=== PATIENT | female | born 1930 | race Caucasian/White ===

== ENCOUNTER 2016-07-29 19:11 | Inpatient (IN) | payer OTHER ==
[~2016-07-29] VITALS: Ht 165.1 cm; Wt 52.0 kg
[~2016-07-29 19:11] MED LIST: 24 HOUR ALLER15.8 ML BOTH NARES; ADVAIR 500/501 DISK IH; ALBUTEROL2.5 MG/3 M IH; AMBIEN5 MG PO; ARICEPT10 MG PO; ATROVENT 00.5 MG/2.5 IH; AUGMENTIN875 MG PO; AZITHROMYCIN250 MG PO; BENAZEPRIL HCL10 MG PO; BENAZEPRIL HCL20 MG PO; BLOOD PRESSURE PILL; CALTRATE 6001 TABLE1 PO; CARDIZEM CD,CA240 MG PO; CLONAZEPAM1 MG PO; DONEPEZIL HCL10 MG PO; DOXYCYCLINE HY100 MG PO; FEOSOL325 MG PO; FERROUS SULFAT325 MG PO; FLONASE16 G1 BOTH NARES; FLUTICASONE PRO16 GM BOTH NARES; IMODIUM MS REL1 EACH PO; JANUVIA100 MG PO; KLONOPIN1 MG PO; LEVAQUIN500 MG PO; LEVAQUIN750 MG PO; LOTENSIN20 MG PO; METFORMIN HCL1000 MG PO; METFORMIN HCL500 MG PO; METRONIDAZOLE500 MG PO; MIRTAZAPINE15 MG PO; NORVASC5 M1 PO; OMEPRAZOLE40 M1 PO; PERCOCET 5/31 TABLET PO; PHENERGAN DM SYR1 ML PO; PHENERGAN-CODE120 ML PO; PREDNISONE20 MG PO; PRILOSEC40 MG PO; PROVENTIL,2.5 MG/3 M IH; REMERON15 M2 PO; REMERON30 M2 PO; SUGAR PILL PO; VITAMIN B-12500 MC5 SL; ZOLPIDEM TARTRAT5 MG PO
[2016-07-29 19:46] LABS: HEMATOCRIT 25.4 % (36.0-46.0); MCH 30.6 PG (29.0-34.0); MCHC 31.9 G/DL (30.0-36.0); MCV 95.8 FL (83-99); PLATELET COUNT 283 K/uL (156-360); RBC DIS.WIDTH-CV 14.4 % (11.8-14.6); RBC DIS.WIDTH-SD 47.5 % (39-53); RED BLOOD COUNT 2.65 M/uL (3.80-5.20); WHITE BLOOD COUNT 10.7 K/uL (4.1-10.2)
[2016-07-29 19:55] LABS: CHLORIDE 117 mEq/L (99-109); POTASSIUM 5.6 mEq/L (3.7-5.4); SODIUM 141 mEq/L (136-147)
[2016-07-29 19:58] LABS: GLUCOSE 108 mg/dL (70-99)
[2016-07-29 19:59] LABS: ANION GAP 8 MEQ/L (2-14)
[2016-07-29 20:00] LABS: TOTAL BILIRUBIN 0.2 mg/dL (0.0-1.0)
[2016-07-29 20:01] LABS: ALKALINE PHOSPHATASE 55 IU/L (3-129)
[2016-07-29 20:02] LABS: GFR ESTIMATE (CALCULATED) 30 mL/min/
[2016-07-29 20:03] LABS: DIRECT BILIRUBIN 0.1 mg/dL (0.0-0.3); UREA NITROGEN (BUN) 65 mg/dL (9-23)
[2016-07-29 20:05] LABS: LIPASE 17 U/L (1.0-51.0)
[2016-07-29 20:07] LABS: TROP-I INTERPRETATION NEGATIVE; TROPONIN-I < 0.01 ng/mL (0.0-0.30)
[2016-07-29] MEDS ORDERED: REMERON30 M2 PO (20:45)
[2016-07-29] MEDS ORDERED: BENAZEPRIL HCL20 MG PO (20:45)
[2016-07-29] MEDS ORDERED: PROMETHAZINE-D120 ML PO (20:46)
[2016-07-29] MEDS ORDERED: CLOTRIMAZOLE10 MG PO (20:47)
[2016-07-29] MEDS ORDERED: CLINDAMYCIN HC150 MG PO (20:47)
[2016-07-29] MEDS ORDERED: SERTRALINE HCL25 MG PO (20:48)
[2016-07-29] MEDS ORDERED: VENTOLIN HFA18 GM IH (20:49)
[2016-07-29] MEDS ORDERED: TRAZODONE HCL50 MG PO (20:49)
[2016-07-29] MEDS ORDERED: NAMENDA10 MG PO (20:49)
[2016-07-29 21:09] LABS: CARBON DIOXIDE (BICARBONATE) 18.2 MEQ/L (20-31)
[2016-07-29 21:46] LABS: ADD MIUA? YES; BILIRUBIN NEGATIVE; BLOOD NEGATIVE; COLOR YELLOW ((YELLOW)); GLUCOSE (STRIP) NEGATIVE; KETONES 5; LEUKOCYTES NEGATIVE; NITRITE NEGATIVE; PROTEIN (STRIP) NEGATIVE; SPECIFIC GRAVITY 1.016 (1.000-1.030); UROBILINOGEN 0.2 MG/DL (0.2-1.0)
[2016-07-29 21:56] LABS: BACTERIA NONE SEEN /HPF; EPITHELIAL CELLS RARE /HPF; HYALINE CASTS 15-20 /LPF; MUCUS TRACE /LPF; RED BLOOD CELLS 0-5 /HPF (0-5); UCUL ADDED? NO; WHITE BLOOD CELLS 0-5 /HPF (0-5)
[2016-07-29 23:35] LABS: C DIFF TOXIN POSITIVE (NEGATIVE)
[2016-07-29 23:38] LABS: PROBE CHECK PASS
[2016-07-30] VITALS (28 sets, daily range): BP systolic 0–121; BP diastolic 0–65
[2016-07-30 04:18] LABS: METH RESISTANT S AUREUS PCR NEGATIVE (NEGATIVE)
[2016-07-30 04:19] LABS: PROBE CHECK PASS; SPECIMEN PROCESSING CONTROL PASS
[2016-07-30 04:46] LABS: INFLUENZA A VIRAL ANTIGEN NEGATIVE; INFLUENZA B VIRAL ANTIGEN NEGATIVE
[2016-07-30 06:18] LABS: ANION GAP 9 MEQ/L (2-14); CHLORIDE 121 MEQ/L (99-109); GFR ESTIMATE (CALCULATED) 41 mL/min/; GLUCOSE 107 mg/dL (70-99); MAGNESIUM 1.2 mg/dl (1.3-2.7); POTASSIUM 5.4 MEQ/L (3.7-5.4); SAMPLE HEMOLYSIS CHECK 0; SAMPLE ICTERIC CHECK 0; SAMPLE LIPEMIA CHECK 0; SODIUM 145 MEQ/L (136-147); UREA NITROGEN (BUN) 51 mg/dL (9-23)
[2016-07-30 15:03] LABS: HEMATOCRIT 22.9 % (36.0-46.0); MCH 31.5 PG (29.0-34.0); MCHC 31.9 G/DL (30.0-36.0); MCV 98.7 FL (83-99); MEAN PLAT.VOLUME 8.8 uM^3 (9.5-12.4); PLATELET COUNT 230 K/uL (156-360); RBC DIS.WIDTH-CV 15.3 % (11.8-14.6); RBC DIS.WIDTH-SD 54.9 % (39-53); RED BLOOD COUNT 2.32 M/uL (3.80-5.20); WHITE BLOOD COUNT 9.2 K/uL (4.1-10.2)
[2016-07-30 16:24] LABS: ANION GAP 9 MEQ/L (2-14); CHLORIDE 120 MEQ/L (99-109); GFR ESTIMATE (CALCULATED) 50 mL/min/; GLUCOSE 116 mg/dL (70-99); POTASSIUM 4.6 MEQ/L (3.7-5.4); SAMPLE HEMOLYSIS CHECK 0; SAMPLE ICTERIC CHECK 0; SAMPLE LIPEMIA CHECK 0; SODIUM 144 MEQ/L (136-147); UREA NITROGEN (BUN) 42 mg/dL (9-23)
[2016-07-30 18:00] LABS: POINT-OF-CARE METER ID UU14162636
[2016-07-30 22:52] LABS: POINT-OF-CARE METER ID UU13113803
[2016-07-31] VITALS (18 sets, daily range): BP systolic 89–131; BP diastolic 35–92
[2016-07-31 01:11] LABS: HEMATOCRIT 27.5 % (36.0-46.0); MCV 94.2 FL (83-99)
[2016-07-31 07:48] LABS: POINT-OF-CARE METER ID UU14174217
[2016-07-31 11:02] LABS: EOSINOPHIL (%) 0.1 % (0-5); HEMATOCRIT 26.1 % (36.0-46.0); IMMATURE GRANULOCYTE (%) 0.7 % (0.0-0.7); IMMATURE GRANULOCYTE COUNT 0.7 K/uL; LYMPHOCYTE COUNT 1.8 K/uL (1.0-2.8); MCH 29.9 PG (29.0-34.0); MCHC 32.2 G/DL (30.0-36.0); MCV 92.9 FL (83-99); MEAN PLAT.VOLUME 8.7 uM^3 (9.5-12.4); MONOCYTE COUNT 0.9 K/uL (0-0.8); NEUTROPHIL (%) 74.8 % (45-76); PLATELET COUNT 222 K/uL (156-360); RBC DIS.WIDTH-CV 18.7 % (11.8-14.6); RBC DIS.WIDTH-SD 60.4 % (39-53); RED BLOOD COUNT 2.81 M/uL (3.80-5.20); WHITE BLOOD COUNT 10.7 K/uL (4.1-10.2)
[2016-07-31 11:15] LABS: CHLORIDE 114 mEq/L (99-109); POTASSIUM 3.9 mEq/L (3.7-5.4); SODIUM 142 mEq/L (136-147)
[2016-07-31 11:18] LABS: ANION GAP 8 MEQ/L (2-14)
[2016-07-31 11:20] LABS: GFR ESTIMATE (CALCULATED) > 59 mL/min/
[2016-07-31 11:21] LABS: UREA NITROGEN (BUN) 32 mg/dL (9-23)
[2016-07-31 11:27] LABS: GLUCOSE 215 mg/dL (70-99)
[2016-07-31 12:19] LABS: POINT-OF-CARE METER ID UU14174217
[2016-07-31 17:06] LABS: POINT-OF-CARE METER ID UU14174217
[2016-07-31 22:05] LABS: POINT-OF-CARE METER ID UU14174217
[2016-08-01] VITALS (15 sets, daily range): BP systolic 92–156; BP diastolic 41–71
[2016-08-01 06:54] LABS: HEMATOCRIT 24.6 % (36.0-46.0); MCH 29.9 PG (29.0-34.0); MCHC 32.5 G/DL (30.0-36.0); MCV 91.8 FL (83-99); MEAN PLAT.VOLUME 9.1 uM^3 (9.5-12.4); PLATELET COUNT 187 K/uL (156-360); RBC DIS.WIDTH-CV 18.3 % (11.8-14.6); RBC DIS.WIDTH-SD 60.8 % (39-53); RED BLOOD COUNT 2.68 M/uL (3.80-5.20); WHITE BLOOD COUNT 11.4 K/uL (4.1-10.2)
[2016-08-01 07:43] LABS: POINT-OF-CARE METER ID UU14174217
[2016-08-01 09:39] LABS: ANION GAP 6 MEQ/L (2-14); GFR ESTIMATE (CALCULATED) > 59 mL/min/; GLUCOSE 196 mg/dL (70-99); POTASSIUM 3.4 MEQ/L (3.7-5.4); SAMPLE HEMOLYSIS CHECK 0; SAMPLE ICTERIC CHECK 0; SAMPLE LIPEMIA CHECK 0; SODIUM 138 MEQ/L (136-147); UREA NITROGEN (BUN) 19 mg/dL (9-23)
[2016-08-01 09:42] LABS: CHLORIDE 104 MEQ/L (99-109)
[2016-08-01 11:51] LABS: POINT-OF-CARE METER ID UU14174217
[2016-08-01 17:20] LABS: POINT-OF-CARE METER ID UU14174217
[2016-08-01 21:39] LABS: POINT-OF-CARE METER ID UU13113748
[2016-08-02 00:50] VITALS: BP 124/61
[2016-08-02 04:22] VITALS: BP 126/60
[2016-08-02 07:44] LABS: ANION GAP 3 MEQ/L (2-14); CHLORIDE 99 MEQ/L (99-109); GFR ESTIMATE (CALCULATED) > 59 mL/min/; GLUCOSE 227 mg/dL (70-99); POTASSIUM 3.5 MEQ/L (3.7-5.4); SAMPLE HEMOLYSIS CHECK 0; SAMPLE ICTERIC CHECK 0; SAMPLE LIPEMIA CHECK 0; SODIUM 141 MEQ/L (136-147); UREA NITROGEN (BUN) 17 mg/dL (9-23)
[2016-08-02 08:40] VITALS: BP 112/55
[2016-08-02 11:32] VITALS: BP 134/69
[2016-08-02 11:50] LABS: POINT-OF-CARE METER ID UU13113781; POINT-OF-CARE USER ID ENVKC36
[2016-08-02 16:07] VITALS: BP 110/60
[2016-08-02 16:33] LABS: POINT-OF-CARE METER ID UU13113781
[2016-08-02 21:00] VITALS: BP 103/62
[2016-08-02 21:49] LABS: POINT-OF-CARE METER ID UU13113698
[2016-08-03 00:03] VITALS: BP 93/31
[2016-08-03 04:26] VITALS: BP 121/60
[2016-08-03 06:33] LABS: HEMATOCRIT 26.3 % (36.0-46.0); MCH 29.7 PG (29.0-34.0); MCHC 31.9 G/DL (30.0-36.0); MCV 92.9 FL (83-99); MEAN PLAT.VOLUME 9.4 uM^3 (9.5-12.4); PLATELET COUNT 146 K/uL (156-360); RBC DIS.WIDTH-CV 17.3 % (11.8-14.6); RED BLOOD COUNT 2.83 M/uL (3.80-5.20); WHITE BLOOD COUNT 10.7 K/uL (4.1-10.2)
[2016-08-03 06:39] LABS: EOSINOPHIL (%) 0.5 % (0-5); EOSINOPHIL COUNT 0.1 K/uL (0-0.3); IMMATURE GRANULOCYTE (%) 0.6 % (0.0-0.7); IMMATURE GRANULOCYTE COUNT 0.1 K/uL; LYMPHOCYTE COUNT 1.5 K/uL (1.0-2.8); MONOCYTE (%) 11.2 % (3-12); MONOCYTE COUNT 1.2 K/uL (0-0.8); NEUTROPHIL COUNT 7.9 K/uL (1.8-6.4)
[2016-08-03 06:58] LABS: ANION GAP 4 MEQ/L (2-14); CHLORIDE 100 MEQ/L (99-109); GFR ESTIMATE (CALCULATED) > 59 mL/min/; GLUCOSE 143 mg/dL (70-99); POTASSIUM 3.9 MEQ/L (3.7-5.4); SAMPLE HEMOLYSIS CHECK 0; SAMPLE ICTERIC CHECK 0; SAMPLE LIPEMIA CHECK 0; SODIUM 140 MEQ/L (136-147); UREA NITROGEN (BUN) 17 mg/dL (9-23)
[2016-08-03 08:00] VITALS: BP 138/74
[2016-08-03 08:22] LABS: POINT-OF-CARE METER ID UU13113698; POINT-OF-CARE USER ID ENVKC36
[2016-08-03 11:35] VITALS: BP 115/57
[2016-08-03 12:31] LABS: POINT-OF-CARE METER ID UU13113781
[2016-08-03 15:53] VITALS: BP 135/64
[2016-08-03 18:31] VITALS: BP 138/60
[2016-08-03 22:35] LABS: POINT-OF-CARE METER ID UU14149396
[2016-08-04] VITALS: BP 130/72
[2016-08-04 04:10] VITALS: BP 115/58
[2016-08-04 07:23] LABS: HEMATOCRIT 23.4 % (36.0-46.0); MCH 30.6 PG (29.0-34.0); MCHC 32.9 G/DL (30.0-36.0); MCV 92.9 FL (83-99); RBC DIS.WIDTH-CV 17.1 % (11.8-14.6); RBC DIS.WIDTH-SD 58.2 % (39-53); RED BLOOD COUNT 2.52 M/uL (3.80-5.20); WHITE BLOOD COUNT 8.4 K/uL (4.1-10.2)
[2016-08-04 07:31] LABS: ANION GAP 5 MEQ/L (2-14); CHLORIDE 103 MEQ/L (99-109); GFR ESTIMATE (CALCULATED) > 59 mL/min/; GLUCOSE 121 mg/dL (70-99); POTASSIUM 4.2 MEQ/L (3.7-5.4); SAMPLE HEMOLYSIS CHECK 0; SAMPLE ICTERIC CHECK 0; SAMPLE LIPEMIA CHECK 0; SODIUM 142 MEQ/L (136-147); UREA NITROGEN (BUN) 12 mg/dL (9-23)
[2016-08-04 08:00] VITALS: BP 122/54
[2016-08-04 08:20] LABS: EOSINOPHIL (%) 1.1 % (0-5); EOSINOPHIL COUNT 0.1 K/uL (0-0.3); IMMATURE GRANULOCYTE (%) 0.4 % (0.0-0.7); IMMATURE GRANULOCYTE COUNT 0.4 K/uL; LYMPHOCYTE COUNT 1.5 K/uL (1.0-2.8); MEAN PLAT.VOLUME 9.7 uM^3 (9.5-12.4); MONOCYTE (%) 11.6 % (3-12); NEUTROPHIL (%) 69.8 % (45-76); NEUTROPHIL COUNT 6.2 K/uL (1.8-6.4); PLATELET COUNT 172 K/uL (156-360)
[2016-08-04 09:14] LABS: POINT-OF-CARE METER ID UU14149396
[2016-08-04 12:00] VITALS: BP 112/70
[2016-08-04 12:30] LABS: POINT-OF-CARE METER ID UU14149396
[2016-08-04 16:54] LABS: POINT-OF-CARE METER ID UU14149396
[2016-08-04 19:45] VITALS: BP 116/62
[2016-08-04 22:02] LABS: POINT-OF-CARE METER ID UU14149396
[2016-08-04 23:30] VITALS: BP 102/64
[2016-08-05 03:30] VITALS: BP 108/66
[2016-08-05 07:56] VITALS: BP 137/73
[2016-08-05 08:37] LABS: POINT-OF-CARE METER ID UU13113807
[2016-08-05 09:27] LABS: HEMATOCRIT 26.9 % (36.0-46.0); MCH 29.8 PG (29.0-34.0); MCHC 32.3 G/DL (30.0-36.0); MCV 92.1 FL (83-99); MEAN PLAT.VOLUME 9.6 uM^3 (9.5-12.4); PLATELET COUNT 219 K/uL (156-360); RBC DIS.WIDTH-CV 17.1 % (11.8-14.6); RBC DIS.WIDTH-SD 57.6 % (39-53); RED BLOOD COUNT 2.92 M/uL (3.80-5.20); WHITE BLOOD COUNT 8.3 K/uL (4.1-10.2)
[2016-08-05 09:56] LABS: ANION GAP 6 MEQ/L (2-14); CHLORIDE 101 MEQ/L (99-109); GFR ESTIMATE (CALCULATED) > 59 mL/min/; GLUCOSE 153 mg/dL (70-99); POTASSIUM 4.7 MEQ/L (3.7-5.4); SAMPLE HEMOLYSIS CHECK 0; SAMPLE ICTERIC CHECK 0; SAMPLE LIPEMIA CHECK 0; SODIUM 141 MEQ/L (136-147); UREA NITROGEN (BUN) 15 mg/dL (9-23)
[2016-08-05 12:08] VITALS: BP 132/70
[2016-08-05 13:08] LABS: POINT-OF-CARE METER ID UU13113807
[2016-08-05 16:37] VITALS: BP 135/74
[2016-08-05 17:36] LABS: POINT-OF-CARE METER ID UU13113807
[2016-08-05 21:30] LABS: POINT-OF-CARE METER ID UU13113807
[2016-08-05 23:50] VITALS: BP 130/70
[2016-08-06 05:28] VITALS: BP 144/60
[2016-08-06 07:00] VITALS: BP 140/68
[2016-08-06 07:58] LABS: POINT-OF-CARE METER ID UU14149398
[2016-08-06 09:34] LABS: HEMATOCRIT 27.9 % (36.0-46.0); MCH 29.1 PG (29.0-34.0); MCHC 31.5 G/DL (30.0-36.0); MCV 92.4 FL (83-99); MEAN PLAT.VOLUME 9.2 uM^3 (9.5-12.4); PLATELET COUNT 260 K/uL (156-360); RBC DIS.WIDTH-CV 17.3 % (11.8-14.6); RBC DIS.WIDTH-SD 58.2 % (39-53); RED BLOOD COUNT 3.02 M/uL (3.80-5.20); WHITE BLOOD COUNT 7.8 K/uL (4.1-10.2)
[2016-08-06 10:00] LABS: ANION GAP 8 MEQ/L (2-14); CHLORIDE 102 MEQ/L (99-109); POTASSIUM 4.7 MEQ/L (3.7-5.4); SAMPLE HEMOLYSIS CHECK 0; SAMPLE ICTERIC CHECK 0; SAMPLE LIPEMIA CHECK 0; SODIUM 141 MEQ/L (136-147)
[2016-08-06 10:06] LABS: GFR ESTIMATE (CALCULATED) > 59 mL/min/; GLUCOSE 161 mg/dL (70-99); UREA NITROGEN (BUN) 18 mg/dL (9-23)
[2016-08-06 11:03] VITALS: BP 125/60
[2016-08-06 11:11] LABS: POINT-OF-CARE METER ID UU14149398
[2016-08-06 15:56] VITALS: BP 121/78
[2016-08-06 16:07] LABS: POINT-OF-CARE METER ID UU14149398
[2016-08-06 17:12] LABS: POINT-OF-CARE METER ID UU14149398
[2016-08-06 20:00] VITALS: BP 161/76
[2016-08-06 21:25] LABS: POINT-OF-CARE METER ID UU14149398
[2016-08-06 23:41] VITALS: BP 119/57
[2016-08-07 03:34] VITALS: BP 111/58
[2016-08-07 07:45] VITALS: BP 118/62
[2016-08-07 07:55] LABS: POINT-OF-CARE METER ID UU14149398
[2016-08-07 09:32] LABS: HEMATOCRIT 28.8 % (36.0-46.0); MCHC 31.3 G/DL (30.0-36.0); MCV 92.9 FL (83-99); RBC DIS.WIDTH-CV 17.5 % (11.8-14.6); RBC DIS.WIDTH-SD 58.4 % (39-53); WHITE BLOOD COUNT 8.9 K/uL (4.1-10.2)
[2016-08-07 09:39] LABS: MEAN PLAT.VOLUME 9.2 uM^3 (9.5-12.4); PLATELET COUNT 339 K/uL (156-360)
[2016-08-07 10:03] LABS: ANION GAP 6 MEQ/L (2-14); CHLORIDE 100 MEQ/L (99-109); GFR ESTIMATE (CALCULATED) > 59 mL/min/; GLUCOSE 141 mg/dL (70-99); POTASSIUM 4.8 MEQ/L (3.7-5.4); SAMPLE HEMOLYSIS CHECK 0; SAMPLE ICTERIC CHECK 0; SAMPLE LIPEMIA CHECK 0; SODIUM 140 MEQ/L (136-147); UREA NITROGEN (BUN) 17 mg/dL (9-23)
[2016-08-07 10:58] VITALS: BP 119/59
[2016-08-07 11:08] LABS: POINT-OF-CARE METER ID UU14149398
[2016-08-07 15:08] VITALS: BP 110/64
[2016-08-07 16:15] LABS: POINT-OF-CARE METER ID UU14149398
[2016-08-07 19:15] VITALS: BP 100/60
[2016-08-07 21:39] LABS: POINT-OF-CARE METER ID UU14149398
[2016-08-07 23:00] VITALS: BP 100/49
[2016-08-08 03:10] VITALS: BP 98/55
[2016-08-08 07:27] VITALS: BP 105/58
[2016-08-08 07:44] LABS: POINT-OF-CARE METER ID UU14149396
[2016-08-08 11:15] VITALS: BP 118/59
[2016-08-08 11:25] LABS: POINT-OF-CARE METER ID UU14149396
[2016-08-08 15:37] VITALS: BP 105/55
[2016-08-08 15:46] LABS: POINT-OF-CARE METER ID UU14149396
[2016-08-08 19:15] VITALS: BP 110/50
[2016-08-08 20:27] LABS: POINT-OF-CARE METER ID UU14149396
[2016-08-08 23:15] VITALS: BP 110/44
[2016-08-09] VITALS (8 sets, daily range): BP systolic 88–120; BP diastolic 40–76
[2016-08-09 06:41] LABS: HEMATOCRIT 24.4 % (36.0-46.0); MCH 30.6 PG (29.0-34.0); MCHC 32.4 G/DL (30.0-36.0); MCV 94.6 FL (83-99); PLATELET COUNT 292 K/uL (156-360); RBC DIS.WIDTH-CV 17.9 % (11.8-14.6); RBC DIS.WIDTH-SD 60.8 % (39-53); RED BLOOD COUNT 2.58 M/uL (3.80-5.20); WHITE BLOOD COUNT 6.4 K/uL (4.1-10.2)
[2016-08-09 06:58] LABS: EOSINOPHIL (%) 3.1 % (0-5); EOSINOPHIL COUNT 0.2 K/uL (0-0.3); IMMATURE GRANULOCYTE (%) 1.1 % (0.0-0.7); IMMATURE GRANULOCYTE COUNT 0.1 K/uL; LYMPHOCYTE COUNT 1.5 K/uL (1.0-2.8); MONOCYTE (%) 9.9 % (3-12); MONOCYTE COUNT 0.6 K/uL (0-0.8); NEUTROPHIL (%) 61.7 % (45-76); NEUTROPHIL COUNT 3.9 K/uL (1.8-6.4)
[2016-08-09 07:11] LABS: ANION GAP 6 MEQ/L (2-14); CHLORIDE 104 MEQ/L (99-109); GFR ESTIMATE (CALCULATED) > 59 mL/min/; GLUCOSE 133 mg/dL (70-99); POTASSIUM 5.2 MEQ/L (3.7-5.4); SAMPLE HEMOLYSIS CHECK 0; SAMPLE ICTERIC CHECK 0; SAMPLE LIPEMIA CHECK 0; SODIUM 140 MEQ/L (136-147)
[2016-08-09 07:19] LABS: UREA NITROGEN (BUN) 27 mg/dL (9-23)
[2016-08-09 07:34] LABS: POINT-OF-CARE METER ID UU14149396
[2016-08-09 11:23] LABS: POINT-OF-CARE METER ID UU13113807
[2016-08-09 15:51] LABS: POINT-OF-CARE METER ID UU14149396
[2016-08-09 21:37] LABS: POINT-OF-CARE METER ID UU13113807
[2016-08-10 04:23] VITALS: BP 126/81
[2016-08-10 06:55] LABS: HEMATOCRIT 26.9 % (36.0-46.0); MCH 29.1 PG (29.0-34.0); MCHC 31.2 G/DL (30.0-36.0); MCV 93.1 FL (83-99); MEAN PLAT.VOLUME 8.9 uM^3 (9.5-12.4); PLATELET COUNT 350 K/uL (156-360); RBC DIS.WIDTH-SD 60.6 % (39-53); RED BLOOD COUNT 2.89 M/uL (3.80-5.20); WHITE BLOOD COUNT 7.2 K/uL (4.1-10.2)
[2016-08-10 07:02] LABS: EOSINOPHIL (%) 2.1 % (0-5); EOSINOPHIL COUNT 0.2 K/uL (0-0.3); IMMATURE GRANULOCYTE (%) 1.3 % (0.0-0.7); IMMATURE GRANULOCYTE COUNT 0.1 K/uL; LYMPHOCYTE COUNT 1.8 K/uL (1.0-2.8); MONOCYTE (%) 8.9 % (3-12); MONOCYTE COUNT 0.6 K/uL (0-0.8); NEUTROPHIL (%) 62.5 % (45-76); NEUTROPHIL COUNT 4.5 K/uL (1.8-6.4)
[2016-08-10 07:19] LABS: ANION GAP 8 MEQ/L (2-14); CHLORIDE 101 MEQ/L (99-109); GFR ESTIMATE (CALCULATED) 56 mL/min/; GLUCOSE 129 mg/dL (70-99); SAMPLE HEMOLYSIS CHECK 0; SAMPLE ICTERIC CHECK 0; SAMPLE LIPEMIA CHECK 0; SODIUM 138 MEQ/L (136-147); UREA NITROGEN (BUN) 22 mg/dL (9-23)
[2016-08-10 08:45] VITALS: BP 148/68
[2016-08-10 11:56] VITALS: BP 160/60
[2016-08-10 12:06] LABS: POINT-OF-CARE METER ID UU14149396; POINT-OF-CARE USER ID 606021404
[2016-08-10] MEDS ORDERED: VANCOMYCIN125 MG/2.5 PO (13:59)
== END 2016-08-10 16:00 | disposition home or self-care (01) | DRG 371 ==
LOC: EME → EDBD 19:11 → EME 19:11 → EDOF 23:54 → 4EAST 23:54 → 4WEST 23:54 → EDOF 07-30 01:40 → 4WEST 07-30 02:42 → 4EAST 08-01 21:51 → 4SOUTH 08-03 18:19
PROVIDERS: Emergency Medicine; Internal Medicine; Internal Medicine Pulmonary Disease; Physician Assistant; Student in an Organized Health Care Education/Training Program; Surgery
PROC: 30233N1 Transfusion of Nonautologous Red Blood Cells into Peripheral Vein, Percutaneous Approach (ICD-10-PCS; principal; 2016-07-30)
DX: A04.7 Enterocolitis due to Clostridium difficile (principal); J18.9 Pneumonia, unspecified organism; E44.0 Moderate protein-calorie malnutrition; E87.2 Acidosis; J96.21 Acute and chronic respiratory failure with hypoxia; J44.1 Chronic obstructive pulmonary disease with (acute) exacerbation; R11.10 Vomiting, unspecified; K21.9 Gastro-esophageal reflux disease without esophagitis; I10 Essential (primary) hypertension; R53.1 Weakness; F17.200 Nicotine dependence, unspecified, uncomplicated; R19.7 Diarrhea, unspecified; Z88.1 Allergy status to other antibiotic agents; E11.9 Type 2 diabetes mellitus without complications; F03.90 Unspecified dementia, unspecified severity, without behavioral disturbance, psychotic disturbance, mood disturbance, and anxiety; I48.0 Paroxysmal atrial fibrillation; E87.5 Hyperkalemia; E86.0 Dehydration; D64.9 Anemia, unspecified; I95.9 Hypotension, unspecified; Z79.4 Long term (current) use of insulin; F41.9 Anxiety disorder, unspecified; Z88.2 Allergy status to sulfonamides; Z88.0 Allergy status to penicillin; Z88.6 Allergy status to analgesic agent; Z87.19 Personal history of other diseases of the digestive system; Z86.79 Personal history of other diseases of the circulatory system
CPT/HCPCS: 36600; 71010; 71020; 71250; 73130; 74000; 80048; 80048 91; 80076; 81003; 82803; 82948; 83605; 83690; 83735; 83880; 84484; 85014; 85018; 85025; 85027; 86850; 86900; 86901; 86920; 87040; 87086; 87493; 87502; 87641; 93005; 94640; 94640 76; 94760; 94799; 99202; 99281; 99285; J0610; J0696; J1644; J1815; J1940; J1956; J2405; J2543; J3475; J7030; J7040; J7050; J7070; P9016; S0030

== ENCOUNTER 2016-11-04 11:07 | Inpatient (IN) | payer OTHER ==
[~2016-11-04] VITALS: Ht 165.1 cm; Wt 43.0 kg
[~2016-11-04 11:07] MED LIST changes: +CLINDAMYCIN HC150 MG PO; +CLOTRIMAZOLE10 MG PO; +NAMENDA10 MG PO; +PROMETHAZINE-D120 ML PO; +SERTRALINE HCL25 MG PO; +TRAZODONE HCL50 MG PO; +VANCOMYCIN125 MG/2.5 PO; +VENTOLIN HFA18 GM IH
[2016-11-04 12:52] LABS: HEMATOCRIT 30.2 % (36.0-46.0); MCH 31.2 PG (29.0-34.0); MCHC 32.1 G/DL (30.0-36.0); MCV 97.1 FL (83-99); MEAN PLAT.VOLUME 9.7 uM^3 (9.5-12.4); PLATELET COUNT 223 K/uL (156-360); RBC DIS.WIDTH-CV 13.5 % (11.8-14.6); RBC DIS.WIDTH-SD 46.5 % (39-53); RED BLOOD COUNT 3.11 M/uL (3.80-5.20); WHITE BLOOD COUNT 5.6 K/uL (4.1-10.2)
[2016-11-04 12:57] LABS: CHLORIDE 105 mEq/L (99-109); POTASSIUM 4.7 mEq/L (3.7-5.4); SODIUM 135 mEq/L (136-147)
[2016-11-04 12:59] LABS: GLUCOSE 144 mg/dL (70-99)
[2016-11-04 13:00] LABS: ANION GAP 9 MEQ/L (2-14)
[2016-11-04 13:01] LABS: TOTAL BILIRUBIN 0.2 mg/dL (0.0-1.0)
[2016-11-04 13:02] LABS: ALKALINE PHOSPHATASE 42 IU/L (3-129)
[2016-11-04 13:03] LABS: GFR ESTIMATE (CALCULATED) 33 mL/min/
[2016-11-04 13:04] LABS: UREA NITROGEN (BUN) 41 mg/dL (9-23)
[2016-11-04 13:46] LABS: ABS NEUTROPHIL COUNT 4.1; ATYPICAL LYMPHOCYTE 1.8 %; BAND NEUTROPHILS 0.9 % (0-8.0); EOSINOPHIL ABS CT 0; INSTRUMENT ABS NEUTROPHIL CT 3.4 K/uL; LYMPHOCYTES 10.6 % (15.0-45.0); MYELOCYTES 1.8 %; PLAT.SUFFICIENCY ADEQUATE; POIKILOCYTOSIS 1+; SEG.NEUTROPHILS 72.5 % (46.0-76.0); SMUDGE CELLS 6.2
[2016-11-04] MEDS ORDERED: REMERON15 M2 PO (14:57)
[2016-11-04] MEDS ORDERED: ADVAIR 250/501 DISK IH (14:59)
[2016-11-04] MEDS ORDERED: DONEPEZIL HCL10 MG PO (15:00)
[2016-11-04] MEDS ORDERED: METRONIDAZOLE500 MG PO (15:00)
[2016-11-04 18:26] VITALS: BP 149/88
[2016-11-04 22:10] LABS: POINT-OF-CARE METER ID UU13113725; POINT-OF-CARE USER ID 608261316
[2016-11-05 00:37] VITALS: BP 146/75
[2016-11-05 06:03] LABS: POINT-OF-CARE METER ID UU13113725
[2016-11-05 07:58] LABS: HEMATOCRIT 26.6 % (36.0-46.0); MCH 31.2 PG (29.0-34.0); MCHC 31.6 G/DL (30.0-36.0); MCV 98.9 FL (83-99); MEAN PLAT.VOLUME 9.9 uM^3 (9.5-12.4); PLATELET COUNT 204 K/uL (156-360); RBC DIS.WIDTH-CV 13.4 % (11.8-14.6); RBC DIS.WIDTH-SD 47.7 % (39-53); RED BLOOD COUNT 2.69 M/uL (3.80-5.20); WHITE BLOOD COUNT 4.9 K/uL (4.1-10.2)
[2016-11-05 08:15] LABS: ANION GAP 9 MEQ/L (2-14); CHLORIDE 109 MEQ/L (99-109); GFR ESTIMATE (CALCULATED) > 59 mL/min/; GLUCOSE 150 mg/dL (70-99); POTASSIUM 4.5 MEQ/L (3.7-5.4); SAMPLE HEMOLYSIS CHECK 0; SAMPLE ICTERIC CHECK 0; SAMPLE LIPEMIA CHECK 0; SODIUM 139 MEQ/L (136-147); UREA NITROGEN (BUN) 29 mg/dL (9-23)
[2016-11-05 09:10] VITALS: BP 130/76
[2016-11-05 11:53] LABS: POINT-OF-CARE METER ID UU13113725
[2016-11-05 16:02] VITALS: BP 120/79
[2016-11-05 16:54] LABS: POINT-OF-CARE METER ID UU13113725
[2016-11-05 21:13] LABS: POINT-OF-CARE METER ID UU13113725; POINT-OF-CARE USER ID 608261316
[2016-11-06 00:01] VITALS: BP 132/76
[2016-11-06 05:46] LABS: POINT-OF-CARE METER ID UU13113725; POINT-OF-CARE USER ID 608261316
[2016-11-06 06:23] LABS: EOSINOPHIL (%) 0.9 % (0-5); EOSINOPHIL COUNT 0.1 K/uL (0-0.3); IMMATURE GRANULOCYTE (%) 0.4 % (0.0-0.7); INSTRUMENT ABS NEUTROPHIL CT 3.5 K/uL; LYMPHOCYTE COUNT 1.7 K/uL (1.0-2.8); MCH 31.7 PG (29.0-34.0); MCHC 31.9 G/DL (30.0-36.0); MCV 99.2 FL (83-99); MEAN PLAT.VOLUME 9.3 uM^3 (9.5-12.4); MONOCYTE (%) 7.8 % (3-12); MONOCYTE COUNT 0.4 K/uL (0-0.8); NEUTROPHIL (%) 61.2 % (45-76); NEUTROPHIL COUNT 3.5 K/uL (1.8-6.4); PLATELET COUNT 215 K/uL (156-360); RBC DIS.WIDTH-CV 13.3 % (11.8-14.6); RBC DIS.WIDTH-SD 47.4 % (39-53); RED BLOOD COUNT 2.62 M/uL (3.80-5.20); WHITE BLOOD COUNT 5.7 K/uL (4.1-10.2)
[2016-11-06 06:51] LABS: ANION GAP 7 MEQ/L (2-14); CHLORIDE 110 MEQ/L (99-109); GFR ESTIMATE (CALCULATED) > 59 mL/min/; GLUCOSE 127 mg/dL (70-99); POTASSIUM 4.6 MEQ/L (3.7-5.4); SAMPLE HEMOLYSIS CHECK 0; SAMPLE ICTERIC CHECK 0; SAMPLE LIPEMIA CHECK 0; SODIUM 139 MEQ/L (136-147); UREA NITROGEN (BUN) 19 mg/dL (9-23)
[2016-11-06 07:35] VITALS: BP 131/63
[2016-11-06 11:52] LABS: POINT-OF-CARE METER ID UU13113725
[2016-11-06 15:10] VITALS: BP 118/56
[2016-11-06 23:23] VITALS: BP 120/58
[2016-11-07 05:35] LABS: POINT-OF-CARE METER ID UU13113725
[2016-11-07 07:09] VITALS: BP 133/59
[2016-11-07 11:16] LABS: POINT-OF-CARE METER ID UU13113725
[2016-11-07] MEDS ORDERED: VANCOCIN HCL125 MG PO (13:16)
[2016-11-07] MEDS ORDERED: TRAMADOL HCL50 MG PO (13:16)
[2016-11-07 15:45] VITALS: BP 138/62
[2016-11-07 22:30] VITALS: BP 127/73
[2016-11-08 05:51] LABS: POINT-OF-CARE METER ID UU13113725
[2016-11-08 07:04] VITALS: BP 134/67
[2016-11-08 11:16] LABS: POINT-OF-CARE METER ID UU13113725
[2016-11-08 15:08] VITALS: BP 133/65
== END 2016-11-08 17:35 | disposition hospice, home (50) | DRG 934 ==
LOC: EME → EDBD 11:07 → EDOF 13:48 → 5EAST 14:32
PROVIDERS: Emergency Medicine; Internal Medicine
DX: T21.31XA Burn of third degree of chest wall, initial encounter (principal); A04.7 Enterocolitis due to Clostridium difficile; T31.10 Burns involving 10-19% of body surface with 0% to 9% third degree burns; N17.9 Acute kidney failure, unspecified; E86.1 Hypovolemia; E43 Unspecified severe protein-calorie malnutrition; Z68.1 Body mass index [BMI] 19.9 or less, adult; R53.1 Weakness; E11.9 Type 2 diabetes mellitus without complications; I48.2 Chronic atrial fibrillation; I10 Essential (primary) hypertension; J44.9 Chronic obstructive pulmonary disease, unspecified; F03.90 Unspecified dementia, unspecified severity, without behavioral disturbance, psychotic disturbance, mood disturbance, and anxiety; K21.9 Gastro-esophageal reflux disease without esophagitis; D53.9 Nutritional anemia, unspecified; Z51.5 Encounter for palliative care; Z66 Do not resuscitate; X16.XXXA Contact with hot heating appliances, radiators and pipes, initial encounter; F17.210 Nicotine dependence, cigarettes, uncomplicated; Z79.84 Long term (current) use of oral hypoglycemic drugs; Z88.0 Allergy status to penicillin; Z88.1 Allergy status to other antibiotic agents; Z88.2 Allergy status to sulfonamides; Z88.5 Allergy status to narcotic agent
CPT/HCPCS: 71010; 80048; 80053; 82948; 83630; 85025; 85027; 87070; 87075; 87205; 87493; 87506; 93005; 94640; 94640 76; 97530 GP; 99281; 99285; A6212; J0696; J1644; J1815; J3370; J7030; J7040; J7050

== ENCOUNTER 2016-11-19 15:45 | Inpatient (IN) | payer OTHER ==
[~2016-11-19] VITALS: Ht 165.1 cm; Wt 41.3 kg
[~2016-11-19 15:45] MED LIST changes: +ADVAIR 250/501 DISK IH; +TRAMADOL HCL50 MG PO; +VANCOCIN HCL125 MG PO
[2016-11-19 16:32] LABS: HEMATOCRIT 31.8 % (36.0-46.0); MCH 31.4 PG (29.0-34.0); MCHC 30.5 G/DL (30.0-36.0); MCV 102.9 FL (83-99); MEAN PLAT.VOLUME 8.9 uM^3 (9.5-12.4); RBC DIS.WIDTH-CV 12.9 % (11.8-14.6); RBC DIS.WIDTH-SD 47.3 % (39-53); RED BLOOD COUNT 3.09 M/uL (3.80-5.20)
[2016-11-19 16:35] LABS: PLATELET COUNT 334 K/uL (156-360); WHITE BLOOD COUNT 9.5 K/uL (4.1-10.2)
[2016-11-19 16:38] LABS: CHLORIDE 108 mEq/L (99-109); POTASSIUM 5.1 mEq/L (3.7-5.4); SODIUM 143 mEq/L (136-147)
[2016-11-19 16:39] LABS: GLUCOSE 173 mg/dL (70-99)
[2016-11-19 16:41] LABS: ANION GAP 18 MEQ/L (2-14)
[2016-11-19 16:43] LABS: GFR ESTIMATE (CALCULATED) 35 mL/min/
[2016-11-19 16:44] LABS: UREA NITROGEN (BUN) 35 mg/dL (9-23)
[2016-11-19 18:02] LABS: TROP-I INTERPRETATION NEGATIVE; TROPONIN-I < 0.01 ng/mL (0.0-0.30)
[2016-11-19] MEDS ORDERED: CLONAZEPAM0.5 MG PO ×2 (20:39→20:40)
[2016-11-19] MEDS ORDERED: ADVIL200 MG PO (20:41)
[2016-11-19] MEDS ORDERED: MORPHINE CON20 MG/M1 PO (20:42)
[2016-11-19] MEDS ORDERED: VANCOMYCIN125 MG/2.5 PO (20:44)
[2016-11-19 22:45] VITALS: BP 117/64
[2016-11-20 06:33] LABS: HEMATOCRIT 27.1 % (36.0-46.0); MCH 31.5 PG (29.0-34.0); MCV 101.5 FL (83-99); MEAN PLAT.VOLUME 9.1 uM^3 (9.5-12.4); PLATELET COUNT 268 K/uL (156-360); RBC DIS.WIDTH-CV 12.6 % (11.8-14.6); RBC DIS.WIDTH-SD 46.5 % (39-53); RED BLOOD COUNT 2.67 M/uL (3.80-5.20); WHITE BLOOD COUNT 7.6 K/uL (4.1-10.2)
[2016-11-20 07:11] LABS: ANION GAP 9 MEQ/L (2-14); CHLORIDE 107 MEQ/L (99-109); GFR ESTIMATE (CALCULATED) 45 mL/min/; POTASSIUM 4.8 MEQ/L (3.7-5.4); SAMPLE HEMOLYSIS CHECK 0; SAMPLE ICTERIC CHECK 0; SAMPLE LIPEMIA CHECK 0; SODIUM 139 MEQ/L (136-147); UREA NITROGEN (BUN) 31 mg/dL (9-23)
[2016-11-20 07:13] LABS: GLUCOSE 83 mg/dL (70-99)
[2016-11-20 16:35] VITALS: BP 138/63
[2016-11-21 06:56] VITALS: BP 121/59
[2016-11-21 16:09] LABS: ADD MIUA? YES; BILIRUBIN NEGATIVE; BLOOD NEGATIVE; COLOR YELLOW ((YELLOW)); GLUCOSE (STRIP) NEGATIVE; KETONES NEGATIVE; LEUKOCYTES LARGE; NITRITE NEGATIVE; PROTEIN (STRIP) NEGATIVE; SPECIFIC GRAVITY 1.012 (1.000-1.030); UROBILINOGEN 0.2 MG/DL (0.2-1.0)
[2016-11-21 16:24] LABS: CASTS PRESENT /LPF; EPITHELIAL CELLS 3+ /HPF; HYALINE CASTS 0-5 /LPF; MUCUS TRACE /LPF
[2016-11-21 16:25] LABS: RED BLOOD CELLS 0-5 /HPF (0-5); WHITE BLOOD CELLS 15-20 /HPF (0-5)
[2016-11-21 16:26] LABS: BACTERIA NONE SEEN /HPF
[2016-11-21 16:43] VITALS: BP 90/50
[2016-11-22 00:26] VITALS: BP 139/63
[2016-11-22 07:15] VITALS: BP 113/52
[2016-11-22 07:39] LABS: HEMATOCRIT 25.8 % (36.0-46.0); MCH 31.8 PG (29.0-34.0); MCHC 32.2 G/DL (30.0-36.0); MCV 98.9 FL (83-99); MEAN PLAT.VOLUME 9.5 uM^3 (9.5-12.4); PLATELET COUNT 215 K/uL (156-360); RBC DIS.WIDTH-CV 12.5 % (11.8-14.6); RBC DIS.WIDTH-SD 44.8 % (39-53); RED BLOOD COUNT 2.61 M/uL (3.80-5.20); WHITE BLOOD COUNT 5.9 K/uL (4.1-10.2)
[2016-11-22 08:26] LABS: ANION GAP 6 MEQ/L (2-14); CHLORIDE 103 MEQ/L (99-109); GFR ESTIMATE (CALCULATED) 50 mL/min/; GLUCOSE 97 mg/dL (70-99); POTASSIUM 5.3 MEQ/L (3.7-5.4); SAMPLE HEMOLYSIS CHECK 0; SAMPLE ICTERIC CHECK 0; SAMPLE LIPEMIA CHECK 0; SODIUM 136 MEQ/L (136-147); UREA NITROGEN (BUN) 29 mg/dL (9-23)
[2016-11-22 15:24] VITALS: BP 121/56
[2016-11-22 23:17] VITALS: BP 120/53
[2016-11-23 07:00] VITALS: BP 132/75
[2016-11-23 11:39] LABS: ANION GAP 7 MEQ/L (2-14); CHLORIDE 103 MEQ/L (99-109); GFR ESTIMATE (CALCULATED) > 59 mL/min/; POTASSIUM 4.5 MEQ/L (3.7-5.4); SAMPLE HEMOLYSIS CHECK 0; SAMPLE ICTERIC CHECK 0; SAMPLE LIPEMIA CHECK 0; SODIUM 137 MEQ/L (136-147); UREA NITROGEN (BUN) 33 mg/dL (9-23)
[2016-11-23 11:40] LABS: GLUCOSE 148 mg/dL (70-99)
[2016-11-23] MEDS ORDERED: CARDIZEM CD,CA240 MG PO (14:21)
[2016-11-23] MEDS ORDERED: GABAPENTIN300 MG PO (14:21)
[2016-11-23] MEDS ORDERED: SENNA PLUS TAB1 EACH PO (14:22)
[2016-11-23] MEDS ORDERED: BISAC-EVAC10 MG PR (14:22)
[2016-11-23] MEDS ORDERED: CAPSAICIN57 GM TP (14:27)
[2016-11-23 15:19] VITALS: BP 112/54
== END 2016-11-23 16:32 | disposition hospice, home (50) | DRG 683 ==
LOC: EME 15:45 → EDOF 20:59 → 5EAST 20:59
PROVIDERS: Emergency Medicine; Hospitalist; Internal Medicine
DX: N17.9 Acute kidney failure, unspecified (principal); E86.0 Dehydration; I48.0 Paroxysmal atrial fibrillation; F03.90 Unspecified dementia, unspecified severity, without behavioral disturbance, psychotic disturbance, mood disturbance, and anxiety; I95.9 Hypotension, unspecified; R62.7 Adult failure to thrive; R64 Cachexia; Z51.5 Encounter for palliative care; A04.7 Enterocolitis due to Clostridium difficile; I10 Essential (primary) hypertension; D53.8 Other specified nutritional anemias; T21.31XD Burn of third degree of chest wall, subsequent encounter; K21.9 Gastro-esophageal reflux disease without esophagitis; J44.9 Chronic obstructive pulmonary disease, unspecified; Z66 Do not resuscitate; E87.2 Acidosis
CPT/HCPCS: 36415; 71020; 74176; 80048; 80053; 81003; 82533 91; 82607; 82728; 83036; 83540; 83605; 84443; 84466; 84484; 85025; 85027; 86900; 86901; 87040; 87086; 94640 76; 99202; 99281; 99285; J1644; J1956; J2270; J7030; J7120

== ENCOUNTER 2016-12-04 16:03 | Emergency (ER) | payer OTHER ==
[~2016-12-04] VITALS: Ht 165.1 cm; Wt 43.2 kg
[~2016-12-04 16:03] MED LIST changes: +ADVIL200 MG PO; +BISAC-EVAC10 MG PR; +CAPSAICIN57 GM TP; +CLONAZEPAM0.5 MG PO; +GABAPENTIN300 MG PO; +MORPHINE CON20 MG/M1 PO; +SENNA PLUS TAB1 EACH PO
[2016-12-04 18:09] LABS: EOSINOPHIL (%) 2.2 % (0-5); EOSINOPHIL COUNT 0.2 K/uL (0-0.3); HEMATOCRIT 27.7 % (36.0-46.0); IMMATURE GRANULOCYTE (%) 0.5 % (0.0-0.7); IMMATURE GRANULOCYTE COUNT 0.1 K/uL; INSTRUMENT ABS NEUTROPHIL CT 7.6 K/uL; LYMPHOCYTE COUNT 1.4 K/uL (1.0-2.8); MCH 31.9 PG (29.0-34.0); MCHC 31.4 G/DL (30.0-36.0); MCV 101.5 FL (83-99); MEAN PLAT.VOLUME 9.1 uM^3 (9.5-12.4); MONOCYTE (%) 9.7 % (3-12); NEUTROPHIL (%) 73.3 % (45-76); NEUTROPHIL COUNT 7.6 K/uL (1.8-6.4); PLATELET COUNT 217 K/uL (156-360); RBC DIS.WIDTH-CV 13.2 % (11.8-14.6); RBC DIS.WIDTH-SD 48.8 % (39-53); RED BLOOD COUNT 2.73 M/uL (3.80-5.20); WHITE BLOOD COUNT 10.4 K/uL (4.1-10.2)
[2016-12-04] MEDS ORDERED: VITAMIN B12-FO1 EACH PO (18:14)
[2016-12-04] MEDS ORDERED: ULTRAM50 MG PO (18:20)
[2016-12-04 18:24] LABS: ADD MIUA? NO; BILIRUBIN NEGATIVE; BLOOD NEGATIVE; COLOR YELLOW ((YELLOW)); GLUCOSE (STRIP) 50; KETONES NEGATIVE; LEUKOCYTES NEGATIVE; NITRITE NEGATIVE; PROTEIN (STRIP) NEGATIVE; SPECIFIC GRAVITY 1.013 (1.000-1.030); UCUL ADDED? NO; UROBILINOGEN 0.2 MG/DL (0.2-1.0)
[2016-12-04] MEDS ORDERED: REMERON30 M2 PO (18:25)
[2016-12-04 18:33] LABS: TROP-I INTERPRETATION NEGATIVE; TROPONIN-I < 0.01 ng/mL (0.0-0.30)
[2016-12-04] MEDS ORDERED: LEVAQUIN750 MG PO (19:14)
[2016-12-04 20:09] VITALS: BP 124/61
== END 2016-12-04 20:11 | disposition home or self-care (01) ==
LOC: EME 16:03
PROVIDERS: Emergency Medicine
DX: R53.1 Weakness (principal); R42 Dizziness and giddiness; J18.9 Pneumonia, unspecified organism; S39.011A Strain of muscle, fascia and tendon of abdomen, initial encounter; W19.XXXA Unspecified fall, initial encounter; J44.9 Chronic obstructive pulmonary disease, unspecified; J45.909 Unspecified asthma, uncomplicated; I10 Essential (primary) hypertension; Z72.0 Tobacco use
CPT/HCPCS: 71020; 81003; 83605; 84484; 85025; 93005; 94640; 99281; 99285; J7040

== ENCOUNTER 2016-12-14 13:53 | Inpatient (IN) | payer OTHER ==
[~2016-12-14] VITALS: Ht 165.1 cm; Wt 54.3 kg
[~2016-12-14 13:53] MED LIST changes: +ULTRAM50 MG PO; +VITAMIN B12-FO1 EACH PO
[2016-12-14 15:04] LABS: HEMATOCRIT 23.6 % (36.0-46.0); MCH 31.6 PG (29.0-34.0); MCHC 31.8 G/DL (30.0-36.0); MCV 99.6 FL (83-99); MEAN PLAT.VOLUME 9.3 uM^3 (9.5-12.4); PLATELET COUNT 269 K/uL (156-360); RBC DIS.WIDTH-SD 46.9 % (39-53); RED BLOOD COUNT 2.37 M/uL (3.80-5.20); WHITE BLOOD COUNT 9.2 K/uL (4.1-10.2)
[2016-12-14 15:15] LABS: CHLORIDE 103 mEq/L (99-109); POTASSIUM 5.1 mEq/L (3.7-5.4); PTT 27.5 (25-32); SODIUM 136 mEq/L (136-147)
[2016-12-14 15:17] LABS: GLUCOSE 119 mg/dL (70-99)
[2016-12-14 15:20] LABS: ANION GAP 5 MEQ/L (2-14); TOTAL BILIRUBIN 0.2 mg/dL (0.0-1.0)
[2016-12-14 15:21] LABS: ALKALINE PHOSPHATASE 55 IU/L (3-129); GFR ESTIMATE (CALCULATED) > 59 mL/min/
[2016-12-14 15:22] LABS: UREA NITROGEN (BUN) 30 mg/dL (9-23)
[2016-12-14] MEDS ORDERED: ADVAIR 250/501 DISK IH (15:57)
[2016-12-14] MEDS ORDERED: FLONASE16 G1 BOTH NARES (15:58)
[2016-12-14] MEDS ORDERED: CYANOCOBALAM1000 MCG PO (15:58)
[2016-12-14] MEDS ORDERED: SENNA-S TABLET1 EACH PO (16:02)
[2016-12-14] MEDS ORDERED: DILTIAZEM 24HR120 M2 PO (16:04)
[2016-12-14] MEDS ORDERED: MIRTAZAPINE15 MG PO (16:05)
[2016-12-14] MEDS ORDERED: SERTRALINE HCL25 MG PO (16:05)
[2016-12-14 19:55] VITALS: BP 142/61
[2016-12-14 23:35] VITALS: BP 128/59
[2016-12-15] VITALS (9 sets, daily range): BP systolic 127–170; BP diastolic 57–72
[2016-12-15 01:08] LABS: HEMATOCRIT 20.7 % (36.0-46.0); MCH 31.6 PG (29.0-34.0); MCHC 31.9 G/DL (30.0-36.0); MEAN PLAT.VOLUME 8.7 uM^3 (9.5-12.4); PLATELET COUNT 262 K/uL (156-360); RBC DIS.WIDTH-CV 12.7 % (11.8-14.6); RBC DIS.WIDTH-SD 46.2 % (39-53); RED BLOOD COUNT 2.09 M/uL (3.80-5.20); WHITE BLOOD COUNT 6.2 K/uL (4.1-10.2)
[2016-12-15 06:30] LABS: MCH 32.3 PG (29.0-34.0); MCHC 32.3 G/DL (30.0-36.0); MEAN PLAT.VOLUME 8.9 uM^3 (9.5-12.4); PLATELET COUNT 254 K/uL (156-360); RBC DIS.WIDTH-CV 12.8 % (11.8-14.6); RBC DIS.WIDTH-SD 46.2 % (39-53)
[2016-12-15 06:54] LABS: ANION GAP 5 MEQ/L (2-14); CHLORIDE 104 MEQ/L (99-109); GFR ESTIMATE (CALCULATED) > 59 mL/min/; GLUCOSE 117 mg/dL (70-99); SAMPLE HEMOLYSIS CHECK 0; SAMPLE ICTERIC CHECK 0; SAMPLE LIPEMIA CHECK 0; SODIUM 138 MEQ/L (136-147); UREA NITROGEN (BUN) 24 mg/dL (9-23)
[2016-12-16] VITALS (13 sets, daily range): BP systolic 122–172; BP diastolic 63–81
[2016-12-16 06:21] LABS: HEMATOCRIT 31.3 % (36.0-46.0); MCHC 32.9 G/DL (30.0-36.0); MEAN PLAT.VOLUME 8.9 uM^3 (9.5-12.4); PLATELET COUNT 290 K/uL (156-360); RBC DIS.WIDTH-CV 16.4 % (11.8-14.6); RBC DIS.WIDTH-SD 56.4 % (39-53); WHITE BLOOD COUNT 8.3 K/uL (4.1-10.2)
[2016-12-16 06:35] LABS: MCV 94.3 FL (83-99); RED BLOOD COUNT 3.32 M/uL (3.80-5.20)
[2016-12-16 06:43] LABS: ANION GAP 7 MEQ/L (2-14); CHLORIDE 103 MEQ/L (99-109); GFR ESTIMATE (CALCULATED) > 59 mL/min/; GLUCOSE 115 mg/dL (70-99); POTASSIUM 4.6 MEQ/L (3.7-5.4); SAMPLE HEMOLYSIS CHECK 0; SAMPLE ICTERIC CHECK 0; SAMPLE LIPEMIA CHECK 0; SODIUM 138 MEQ/L (136-147); UREA NITROGEN (BUN) 20 mg/dL (9-23)
[2016-12-17] VITALS (7 sets, daily range): BP systolic 97–153; BP diastolic 55–74
[2016-12-17 01:52] LABS: TROP-I INTERPRETATION NEGATIVE; TROPONIN-I < 0.01 ng/mL (0.0-0.30)
[2016-12-17 02:18] LABS: CHLORIDE 105 mEq/L (99-109); POTASSIUM 4.7 mEq/L (3.7-5.4); SODIUM 136 mEq/L (136-147)
[2016-12-17 02:19] LABS: MAGNESIUM 1.2 mg/dL (1.3-2.7)
[2016-12-17 02:20] LABS: GLUCOSE 131 mg/dL (70-99)
[2016-12-17 02:22] LABS: ANION GAP 8 MEQ/L (2-14)
[2016-12-17 02:24] LABS: GFR ESTIMATE (CALCULATED) > 59 mL/min/
[2016-12-17 02:25] LABS: UREA NITROGEN (BUN) 16 mg/dL (9-23)
[2016-12-17 06:49] LABS: HEMATOCRIT 30.2 % (36.0-46.0); MCV 95.9 FL (83-99)
[2016-12-17 07:13] LABS: ANION GAP 10 MEQ/L (2-14); CHLORIDE 101 MEQ/L (99-109); GFR ESTIMATE (CALCULATED) > 59 mL/min/; GLUCOSE 114 mg/dL (70-99); POTASSIUM 4.8 MEQ/L (3.7-5.4); SAMPLE HEMOLYSIS CHECK 0; SAMPLE ICTERIC CHECK 0; SAMPLE LIPEMIA CHECK 0; SODIUM 136 MEQ/L (136-147); UREA NITROGEN (BUN) 17 mg/dL (9-23)
[2016-12-17 07:18] LABS: TROP-I INTERPRETATION NEGATIVE; TROPONIN-I 0.02 ng/mL (0.0-0.30)
[2016-12-18 04:01] VITALS: BP 137/63
[2016-12-18 07:20] LABS: HEMATOCRIT 27.3 % (36.0-46.0); MCV 93.8 FL (83-99)
[2016-12-18 07:50] VITALS: BP 144/70
[2016-12-18 11:31] VITALS: BP 127/92
[2016-12-18 16:41] VITALS: BP 144/66
[2016-12-18 19:46] VITALS: BP 109/53
[2016-12-18 23:39] VITALS: BP 98/50
[2016-12-19 03:15] VITALS: BP 119/57
[2016-12-19 03:42] LABS: ADD MIUA? YES; BILIRUBIN NEGATIVE; BLOOD NEGATIVE; COLOR YELLOW ((YELLOW)); GLUCOSE (STRIP) NEGATIVE; KETONES NEGATIVE; LEUKOCYTES MODERATE; NITRITE NEGATIVE; PROTEIN (STRIP) NEGATIVE; SPECIFIC GRAVITY 1.012 (1.000-1.030); UROBILINOGEN 0.2 MG/DL (0.2-1.0)
[2016-12-19 04:15] LABS: RED BLOOD CELLS NONE SEEN /HPF (0-5); WHITE BLOOD CELLS 20-30 /HPF (0-5)
[2016-12-19 04:16] LABS: BACTERIA 3+ /HPF; EPITHELIAL CELLS 1+ /HPF; MUCUS 3+ /LPF
[2016-12-19 07:46] VITALS: BP 132/62
[2016-12-19 11:31] VITALS: BP 83/46
[2016-12-19 15:55] VITALS: BP 101/50
[2016-12-19 19:39] VITALS: BP 151/72
[2016-12-20] VITALS (11 sets, daily range): BP systolic 115–183; BP diastolic 54–76
[2016-12-20 06:52] LABS: MCH 30.4 PG (29.0-34.0); MCHC 31.6 G/DL (30.0-36.0); MCV 96.2 FL (83-99); MEAN PLAT.VOLUME 9.2 uM^3 (9.5-12.4); PLATELET COUNT 286 K/uL (156-360); RBC DIS.WIDTH-CV 14.7 % (11.8-14.6); RBC DIS.WIDTH-SD 51.9 % (39-53)
[2016-12-20 07:20] LABS: ANION GAP 8 MEQ/L (2-14); CHLORIDE 102 MEQ/L (99-109); GFR ESTIMATE (CALCULATED) > 59 mL/min/; GLUCOSE 218 mg/dL (70-99); SAMPLE HEMOLYSIS CHECK 0; SAMPLE ICTERIC CHECK 0; SAMPLE LIPEMIA CHECK 0; SODIUM 136 MEQ/L (136-147)
[2016-12-20 07:37] LABS: UREA NITROGEN (BUN) 40 mg/dL (9-23)
[2016-12-20 11:25] LABS: INTERNAL CONTROL VALID? YES
[2016-12-21 04:45] VITALS: BP 158/70
[2016-12-21 06:49] LABS: HEMATOCRIT 31.8 % (36.0-46.0); MCH 30.2 PG (29.0-34.0); MCHC 32.1 G/DL (30.0-36.0); MCV 94.1 FL (83-99); MEAN PLAT.VOLUME 9.5 uM^3 (9.5-12.4); PLATELET COUNT 313 K/uL (156-360); RBC DIS.WIDTH-CV 15.4 % (11.8-14.6); RBC DIS.WIDTH-SD 53.3 % (39-53); WHITE BLOOD COUNT 9.3 K/uL (4.1-10.2)
[2016-12-21 06:52] LABS: RED BLOOD COUNT 3.38 M/uL (3.80-5.20)
[2016-12-21 07:11] VITALS: BP 187/76
[2016-12-21 11:37] VITALS: BP 148/71
[2016-12-21] MEDS ORDERED: LOPRESSOR25 MG PO (12:47)
[2016-12-21] MEDS ORDERED: BETHANECHOL CHL25 MG PO (12:47)
[2016-12-21] MEDS ORDERED: LOVENOX40 MG/0.4 SC (12:47)
[2016-12-21] MEDS ORDERED: THERAGRAN1 TABLET PO (12:47)
== END 2016-12-21 16:36 | DRG 470 ==
LOC: EME 13:53 → 3EAST 15:56 → EDOF 15:56 → 3EAST 18:07
PROVIDERS: Emergency Medicine; Hospitalist; Internal Medicine; Internal Medicine Cardiovascular Disease; Orthopaedic Surgery
PROC: 0SRB02A Replacement of Left Hip Joint with Metal on Polyethylene Synthetic Substitute, Uncemented, Open Approach (ICD-10-PCS; principal; 2016-12-16)
DX: S72.002A Fracture of unspecified part of neck of left femur, initial encounter for closed fracture (principal); N30.00 Acute cystitis without hematuria; I47.2 Ventricular tachycardia; Z68.1 Body mass index [BMI] 19.9 or less, adult; D50.9 Iron deficiency anemia, unspecified; L89.629 Pressure ulcer of left heel, unspecified stage; L89.159 Pressure ulcer of sacral region, unspecified stage; I48.0 Paroxysmal atrial fibrillation; G30.1 Alzheimer's disease with late onset; I35.0 Nonrheumatic aortic (valve) stenosis; Z51.5 Encounter for palliative care; Z66 Do not resuscitate; W19.XXXA Unspecified fall, initial encounter; F02.80 Dementia in other diseases classified elsewhere, unspecified severity, without behavioral disturbance, psychotic disturbance, mood disturbance, and anxiety; I10 Essential (primary) hypertension; J44.9 Chronic obstructive pulmonary disease, unspecified; R33.9 Retention of urine, unspecified; J84.10 Pulmonary fibrosis, unspecified; L89.319 Pressure ulcer of right buttock, unspecified stage; Z86.19 Personal history of other infectious and parasitic diseases; K21.9 Gastro-esophageal reflux disease without esophagitis; I49.3 Ventricular premature depolarization; Z87.891 Personal history of nicotine dependence; Z91.81 History of falling; Z90.49 Acquired absence of other specified parts of digestive tract; Z87.442 Personal history of urinary calculi
CPT/HCPCS: 71010; 72170; 73501; 80048; 80048 91; 80053; 81003; 82272; 83735; 83880; 84100; 84484; 85014; 85018; 85027; 85610; 85730; 86900; 86901; 86920; 93005; 94640; 94640 76; 94799; 97530 GP; 99281; 99285; J1644; J1650; J1940; J2405; J2710; J3010; J7030; P9016; P9040; S0028

== ENCOUNTER 2017-01-04 20:05 | Emergency (ER) | payer OTHER ==
[~2017-01-04] VITALS: Ht 165.1 cm; Wt 67.2 kg
[~2017-01-04 20:05] MED LIST changes: +BETHANECHOL CHL25 MG PO; +CYANOCOBALAM1000 MCG PO; +DILTIAZEM 24HR120 M2 PO; +LOPRESSOR25 MG PO; +LOVENOX40 MG/0.4 SC; +SENNA-S TABLET1 EACH PO; +THERAGRAN1 TABLET PO
[2017-01-04 21:55] LABS: EOSINOPHIL (%) 0.6 % (0-5); EOSINOPHIL COUNT 0.1 K/uL (0-0.3); HEMATOCRIT 27.1 % (36.0-46.0); IMMATURE GRANULOCYTE (%) 0.9 % (0.0-0.7); IMMATURE GRANULOCYTE COUNT 0.1 K/uL; INSTRUMENT ABS NEUTROPHIL CT 7.8 K/uL; LYMPHOCYTE COUNT 1.1 K/uL (1.0-2.8); MCV 96.8 FL (83-99); MEAN PLAT.VOLUME 8.5 uM^3 (9.5-12.4); MONOCYTE (%) 7.9 % (3-12); MONOCYTE COUNT 0.8 K/uL (0-0.8); NEUTROPHIL (%) 79.5 % (45-76); NEUTROPHIL COUNT 7.8 K/uL (1.8-6.4); PLATELET COUNT 330 K/uL (156-360); RBC DIS.WIDTH-CV 14.6 % (11.8-14.6); RBC DIS.WIDTH-SD 51.5 % (39-53); WHITE BLOOD COUNT 9.8 K/uL (4.1-10.2)
[2017-01-04 22:03] LABS: PTT 31.1 (25-32)
[2017-01-04 22:05] LABS: CHLORIDE 104 mEq/L (99-109); POTASSIUM 3.9 mEq/L (3.7-5.4); SODIUM 142 mEq/L (136-147)
[2017-01-04 22:07] LABS: GLUCOSE 241 mg/dL (70-99)
[2017-01-04 22:08] LABS: ANION GAP 9 MEQ/L (2-14)
[2017-01-04 22:11] LABS: GFR ESTIMATE (CALCULATED) > 59 mL/min/
[2017-01-04 22:12] LABS: UREA NITROGEN (BUN) 21 mg/dL (9-23)
[2017-01-05 00:45] VITALS: BP 162/69
== END 2017-01-05 01:24 ==
LOC: EME 20:05
PROVIDERS: Emergency Medicine
DX: S09.90XA Unspecified injury of head, initial encounter (principal); S70.02XA Contusion of left hip, initial encounter; W18.30XA Fall on same level, unspecified, initial encounter; Y92.129 Unspecified place in nursing home as the place of occurrence of the external cause; D64.9 Anemia, unspecified; I48.91 Unspecified atrial fibrillation; Z79.01 Long term (current) use of anticoagulants; I50.9 Heart failure, unspecified; I11.0 Hypertensive heart disease with heart failure; F03.90 Unspecified dementia, unspecified severity, without behavioral disturbance, psychotic disturbance, mood disturbance, and anxiety; J44.9 Chronic obstructive pulmonary disease, unspecified; K21.9 Gastro-esophageal reflux disease without esophagitis; F32.9 Major depressive disorder, single episode, unspecified; F41.9 Anxiety disorder, unspecified; Z87.891 Personal history of nicotine dependence; Z88.0 Allergy status to penicillin
CPT/HCPCS: 70450; 73502; 80048; 85025; 85610; 85730; 99281; 99284

== ENCOUNTER 2017-02-12 17:13 | Emergency (ER) | payer OTHER ==
[~2017-02-12] VITALS: Ht 165.1 cm; Wt 49.0 kg
[2017-02-12 19:47] VITALS: BP 154/80
== END 2017-02-12 19:53 ==
LOC: EME → EDBD 17:13 → EME 17:13
PROC: 3E0234Z Introduction of Serum, Toxoid and Vaccine into Muscle, Percutaneous Approach (ICD-10-PCS; principal; 2017-02-12)
DX: S00.03XA Contusion of scalp, initial encounter (principal); S05.12XA Contusion of eyeball and orbital tissues, left eye, initial encounter; S51.012A Laceration without foreign body of left elbow, initial encounter; W01.0XXA Fall on same level from slipping, tripping and stumbling without subsequent striking against object, initial encounter; Y92.129 Unspecified place in nursing home as the place of occurrence of the external cause; Z23 Encounter for immunization; F03.90 Unspecified dementia, unspecified severity, without behavioral disturbance, psychotic disturbance, mood disturbance, and anxiety; I10 Essential (primary) hypertension; J44.9 Chronic obstructive pulmonary disease, unspecified; Z87.891 Personal history of nicotine dependence
CPT/HCPCS: 70450; 72125; 99281; 99284

== ENCOUNTER 2017-04-05 17:40 | Inpatient (IN) | payer OTHER ==
[~2017-04-05] VITALS: Ht 165.1 cm; Wt 39.0 kg
[2017-04-05 18:42] LABS: EOSINOPHIL (%) 0 % (0-5); HEMATOCRIT 35.6 % (36.0-46.0); IMMATURE GRANULOCYTE (%) 0.4 % (0.0-0.7); IMMATURE GRANULOCYTE COUNT 0.1 K/uL; LYMPHOCYTE COUNT 0.7 K/uL (1.0-2.8); MCHC 32.6 G/DL (30.0-36.0); MCV 98.3 FL (83-99); MEAN PLAT.VOLUME 9.6 uM^3 (9.5-12.4); MONOCYTE (%) 4.6 % (3-12); MONOCYTE COUNT 0.8 K/uL (0-0.8); NEUTROPHIL (%) 90.8 % (45-76); PLATELET COUNT 272 K/uL (156-360); RBC DIS.WIDTH-CV 12.8 % (11.8-14.6); RBC DIS.WIDTH-SD 46.5 % (39-53); WHITE BLOOD COUNT 16.5 K/uL (4.1-10.2)
[2017-04-05 18:55] LABS: CHLORIDE 107 mEq/L (99-109); POTASSIUM 4.1 mEq/L (3.7-5.4); SODIUM 144 mEq/L (136-147)
[2017-04-05 18:57] LABS: GLUCOSE 235 mg/dL (70-99); RED BLOOD COUNT 3.62 M/uL (3.80-5.20)
[2017-04-05 18:58] LABS: ANION GAP 16 MEQ/L (2-14)
[2017-04-05 18:59] LABS: TOTAL BILIRUBIN 0.3 mg/dL (0.0-1.0)
[2017-04-05 19:00] LABS: ALKALINE PHOSPHATASE 114 IU/L (3-129)
[2017-04-05 19:01] LABS: GFR ESTIMATE (CALCULATED) 41 mL/min/
[2017-04-05 19:02] LABS: UREA NITROGEN (BUN) 60 mg/dL (9-23)
[2017-04-05 19:11] LABS: ADD MIUA? YES; BILIRUBIN NEGATIVE; BLOOD NEGATIVE; COLOR YELLOW ((YELLOW)); GLUCOSE (STRIP) NEGATIVE; KETONES NEGATIVE; LEUKOCYTES LARGE; NITRITE NEGATIVE; PROTEIN (STRIP) 100; UROBILINOGEN 0.2 MG/DL (0.2-1.0)
[2017-04-05 20:04] LABS: RED BLOOD CELLS RARE /HPF (0-5)
[2017-04-05 20:05] LABS: BACTERIA 3+ /HPF; EPITHELIAL CELLS NONE SEEN /HPF; MUCUS RARE /LPF; UCUL ADDED? YES; WHITE BLOOD CELLS 20-30 /HPF (0-5)
[2017-04-05 20:07] LABS: CASTS NONE SEEN /LPF; CRYSTALS NONE SEEN
[2017-04-05] MEDS ORDERED: BREO ELLIPTA I1 EACH IH (22:50)
[2017-04-05] MEDS ORDERED: EXCEDRIN MIGRA1 EAC3 PO (22:53)
[2017-04-05] MEDS ORDERED: NORCO 5/3251 TABLET PO ×2 (22:56→23:06)
[2017-04-05] MEDS ORDERED: LOPRESSOR25 MG PO (22:58)
[2017-04-05] MEDS ORDERED: PROSOURCE LIQUI30 ML PO (22:59)
[2017-04-05] MEDS ORDERED: KLONOPIN0.5 M1 PO (23:01)
[2017-04-05] MEDS ORDERED: SALINE NASAL SP45 ML BOTH NARES (23:02)
[2017-04-05] MEDS ORDERED: BIOFREEZE 4% TP (23:04)
[2017-04-05] MEDS ORDERED: DULCOLAX10 MG PR (23:05)
[2017-04-05] MEDS ORDERED: MILK OF MAGN PO (23:06)
[2017-04-05] MEDS ORDERED: MIRALAX17 GM PO (23:07)
[2017-04-06] VITALS (8 sets, daily range): BP systolic 115–180; BP diastolic 69–84
[2017-04-06 07:40] LABS: Estimated Average Glucose 154 mg/dL (70-123)
[2017-04-06 08:54] LABS: POINT-OF-CARE METER ID UU14162508; POINT-OF-CARE USER ID 612031306
[2017-04-06 11:59] LABS: POINT-OF-CARE METER ID UU14162508
[2017-04-06 12:26] LABS: C DIFF TOXIN POSITIVE (NEGATIVE); PROBE CHECK PASS
[2017-04-06 13:44] LABS: INTERNAL CONTROL VALID? YES
[2017-04-06 17:28] LABS: POINT-OF-CARE METER ID UU14208750
[2017-04-06 21:43] LABS: POINT-OF-CARE METER ID UU14314084
[2017-04-07 00:05] VITALS: BP 125/70
[2017-04-07 04:06] VITALS: BP 110/70
[2017-04-07 06:09] LABS: POINT-OF-CARE METER ID UU14162508
[2017-04-07 06:40] LABS: EOSINOPHIL (%) 1.9 % (0-5); EOSINOPHIL COUNT 0.2 K/uL (0-0.3); HEMATOCRIT 26.9 % (36.0-46.0); IMMATURE GRANULOCYTE (%) 0.4 % (0.0-0.7); INSTRUMENT ABS NEUTROPHIL CT 5.3 K/uL; LYMPHOCYTE COUNT 1.8 K/uL (1.0-2.8); MCHC 32.3 G/DL (30.0-36.0); MCV 101.9 FL (83-99); MEAN PLAT.VOLUME 10.3 uM^3 (9.5-12.4); MONOCYTE (%) 8.8 % (3-12); MONOCYTE COUNT 0.7 K/uL (0-0.8); NEUTROPHIL (%) 66.2 % (45-76); NEUTROPHIL COUNT 5.3 K/uL (1.8-6.4); PLATELET COUNT 202 K/uL (156-360); RBC DIS.WIDTH-CV 13.2 % (11.8-14.6); RBC DIS.WIDTH-SD 49.7 % (39-53); WHITE BLOOD COUNT 7.9 K/uL (4.1-10.2)
[2017-04-07 06:42] LABS: RED BLOOD COUNT 2.64 M/uL (3.80-5.20)
[2017-04-07 07:00] LABS: ANION GAP 9 MEQ/L (2-14); CHLORIDE 111 MEQ/L (99-109); POTASSIUM 3.6 MEQ/L (3.7-5.4); SAMPLE HEMOLYSIS CHECK 0; SAMPLE ICTERIC CHECK 0; SAMPLE LIPEMIA CHECK 0; SODIUM 144 MEQ/L (136-147); UREA NITROGEN (BUN) 31 mg/dL (9-23)
[2017-04-07 07:04] LABS: GFR ESTIMATE (CALCULATED) > 59 mL/min/; GLUCOSE 118 mg/dL (70-99)
[2017-04-07 12:09] LABS: POINT-OF-CARE METER ID UU14314084; POINT-OF-CARE USER ID PUTDRM
[2017-04-07 16:36] VITALS: BP 147/74
[2017-04-07 16:51] LABS: POINT-OF-CARE METER ID UU14162508
[2017-04-07 21:33] LABS: POINT-OF-CARE METER ID UU14162508
[2017-04-07 21:35] LABS: HEMATOCRIT 28.8 % (36.0-46.0); MCV 99.3 FL (83-99)
[2017-04-08 00:03] VITALS: BP 166/74
[2017-04-08 06:56] LABS: POINT-OF-CARE METER ID UU14314084
[2017-04-08 06:56] LABS: EOSINOPHIL (%) 4.4 % (0-5); EOSINOPHIL COUNT 0.3 K/uL (0-0.3); HEMATOCRIT 30.7 % (36.0-46.0); IMMATURE GRANULOCYTE (%) 0.3 % (0.0-0.7); INSTRUMENT ABS NEUTROPHIL CT 4.7 K/uL; LYMPHOCYTE COUNT 1.5 K/uL (1.0-2.8); MCHC 31.3 G/DL (30.0-36.0); MEAN PLAT.VOLUME 9.4 uM^3 (9.5-12.4); MONOCYTE (%) 9.1 % (3-12); MONOCYTE COUNT 0.7 K/uL (0-0.8); NEUTROPHIL (%) 64.6 % (45-76); NEUTROPHIL COUNT 4.7 K/uL (1.8-6.4); PLATELET COUNT 258 K/uL (156-360); RBC DIS.WIDTH-CV 12.8 % (11.8-14.6); RBC DIS.WIDTH-SD 46.2 % (39-53); WHITE BLOOD COUNT 7.3 K/uL (4.1-10.2)
[2017-04-08 07:22] LABS: ANION GAP 9 MEQ/L (2-14); CHLORIDE 104 MEQ/L (99-109); GFR ESTIMATE (CALCULATED) > 59 mL/min/; GLUCOSE 134 mg/dL (70-99); POTASSIUM 3.9 MEQ/L (3.7-5.4); SAMPLE HEMOLYSIS CHECK 0; SAMPLE ICTERIC CHECK 0; SAMPLE LIPEMIA CHECK 0; SODIUM 140 MEQ/L (136-147); UREA NITROGEN (BUN) 16 mg/dL (9-23)
[2017-04-08] MEDS ORDERED: VANCOMYCIN HCL125 MG PO (12:11)
== END 2017-04-08 14:33 | disposition hospice, home (50) | DRG 871 ==
LOC: EME 17:40 → EDOF 23:35 → 2EAST 23:35 → ENRESERV 23:40 → 2EAST 04-06 01:44
PROVIDERS: Emergency Medicine; Hospitalist; Internal Medicine; Student in an Organized Health Care Education/Training Program
DX: A41.9 Sepsis, unspecified organism (principal); L89.154 Pressure ulcer of sacral region, stage 4; N39.0 Urinary tract infection, site not specified; Z68.1 Body mass index [BMI] 19.9 or less, adult; A04.72 Enterocolitis due to Clostridium difficile, not specified as recurrent; J93.9 Pneumothorax, unspecified; J44.9 Chronic obstructive pulmonary disease, unspecified; I50.9 Heart failure, unspecified; K21.9 Gastro-esophageal reflux disease without esophagitis; I48.2 Chronic atrial fibrillation; I11.0 Hypertensive heart disease with heart failure; F03.90 Unspecified dementia, unspecified severity, without behavioral disturbance, psychotic disturbance, mood disturbance, and anxiety; K59.00 Constipation, unspecified; Z87.442 Personal history of urinary calculi; Z99.3 Dependence on wheelchair; Z79.82 Long term (current) use of aspirin; Z79.51 Long term (current) use of inhaled steroids; Z88.2 Allergy status to sulfonamides; Z88.0 Allergy status to penicillin; Z88.5 Allergy status to narcotic agent
CPT/HCPCS: 70450; 71010; 80048; 80053; 81003; 82272; 82948; 83036; 83605; 85014; 85018; 85025; 85025 91; 85027; 86850; 86900; 86901; 87040; 87077; 87086; 87186; 87493; 94640; 94640 76; 99202; 99281; 99285; C9113; J0696; J1644; J1815; J7030; J7050; S0028

== ENCOUNTER 2017-05-07 12:21 | Emergency (ER) | payer OTHER ==
[~2017-05-07] VITALS: Ht 165.1 cm; Wt 38.0 kg
[~2017-05-07 12:21] MED LIST changes: +BIOFREEZE 4% TP; +BREO ELLIPTA I1 EACH IH; +DULCOLAX10 MG PR; +EXCEDRIN MIGRA1 EAC3 PO; +KLONOPIN0.5 M1 PO; +MILK OF MAGN PO; +MIRALAX17 GM PO; +NORCO 5/3251 TABLET PO; +PROSOURCE LIQUI30 ML PO; +SALINE NASAL SP45 ML BOTH NARES; +VANCOMYCIN HCL125 MG PO
[2017-05-07 13:24] LABS: MCH 31.7 PG (29.0-34.0); MCHC 31.1 G/DL (30.0-36.0); MCV 101.9 FL (83-99); RBC DIS.WIDTH-SD 48.7 % (39-53); RED BLOOD COUNT 2.65 M/uL (3.80-5.20); WHITE BLOOD COUNT 9.7 K/uL (4.1-10.2)
[2017-05-07 13:56] LABS: CHLORIDE 106 mEq/L (99-109); POTASSIUM 4.2 mEq/L (3.7-5.4); SODIUM 140 mEq/L (136-147)
[2017-05-07 13:58] LABS: GLUCOSE 164 mg/dL (70-99)
[2017-05-07 13:59] LABS: ANION GAP 10 MEQ/L (2-14)
[2017-05-07 14:02] LABS: GFR ESTIMATE (CALCULATED) 56 mL/min/
[2017-05-07 14:05] LABS: UREA NITROGEN (BUN) 46 mg/dL (9-23)
[2017-05-07 14:30] LABS: MEAN PLAT.VOLUME 9.6 uM^3 (9.5-12.4); PLAT.SUFFICIENCY ADEQUATE; PLATELET COUNT 167 K/uL (156-360)
[2017-05-07 16:05] LABS: ADD MIUA? YES; BILIRUBIN NEGATIVE; BLOOD NEGATIVE; COLOR YELLOW ((YELLOW)); GLUCOSE (STRIP) NEGATIVE; KETONES NEGATIVE; LEUKOCYTES NEGATIVE; NITRITE NEGATIVE; PROTEIN (STRIP) 100; SPECIFIC GRAVITY 1.021 (1.000-1.030); UROBILINOGEN 0.2 MG/DL (0.2-1.0)
[2017-05-07 16:21] LABS: BACTERIA RARE /HPF; EPITHELIAL CELLS RARE /HPF; GRANULAR CASTS 0-5 /LPF; MUCUS TRACE /LPF; RED BLOOD CELLS 0-5 /HPF (0-5); UCUL ADDED? NO; WHITE BLOOD CELLS 0-5 /HPF (0-5)
[2017-05-07 16:41] VITALS: BP 106/49
== END 2017-05-07 16:41 ==
LOC: EME 12:21
PROVIDERS: Emergency Medicine
DX: R50.9 Fever, unspecified (principal); R53.1 Weakness; E86.0 Dehydration; I10 Essential (primary) hypertension; J44.9 Chronic obstructive pulmonary disease, unspecified; F03.90 Unspecified dementia, unspecified severity, without behavioral disturbance, psychotic disturbance, mood disturbance, and anxiety; K21.9 Gastro-esophageal reflux disease without esophagitis; F41.9 Anxiety disorder, unspecified; F32.9 Major depressive disorder, single episode, unspecified; Z85.9 Personal history of malignant neoplasm, unspecified; Z87.442 Personal history of urinary calculi; Z87.891 Personal history of nicotine dependence; Z88.0 Allergy status to penicillin; Z88.2 Allergy status to sulfonamides; Z88.1 Allergy status to other antibiotic agents; Z88.5 Allergy status to narcotic agent
CPT/HCPCS: 71010; 80048; 81003; 83605; 85027; 87040; 99281; 99285; J7030